=== PATIENT | female | born 1945 | race African-American/Black ===

== ENCOUNTER 2017-09-07 15:23 | Emergency (ER) | payer MEDICARE, MEDICAID ==
[~2017-09-07] VITALS: Ht 162.6 cm; Wt 60.0 kg
[~2017-09-07 15:23] MED LIST: AMLO10TA80; ATEN50TA; GLIP10TA10; LOSA50TA20; METF500T4; PRAV40TA58
[2017-09-07 16:08] VITALS: BP 136/76
== END 2017-09-07 18:26 | disposition home or self-care (01) ==
LOC: ER 18:14
DX: Z48.02 Encounter for removal of sutures (principal)
CPT/HCPCS: 99281